=== PATIENT | female | born 1940 | race Caucasian/White ===

== ENCOUNTER 2023-06-20 10:18 | Inpatient (IN) | payer MEDICARE, OTHER ==
[~2023-06-20] VITALS: Ht 165.1 cm; Wt 69.0 kg
[2023-06-20 11:42] LABS: BASOPHILS % (AUTO) 0.4 % (0-1); EOSINOPHILS # (AUTO) 0.1 X10'3 (0-0.9); EOSINOPHILS % (AUTO) 1.1 % (0-6); HEMATOCRIT 29.9 % (35.0-45.0); HEMOGLOBIN 10.2 g/dl (12.0-16.0); LYMPHOCYTES # (AUTO) 1.3 X10'3 (1.1-4.8); LYMPHOCYTES % (AUTO) 19.9 % (21-51); MEAN CORPUSCULAR HGB CONC 34.2 g/dL (33.0-36.5); MEAN CORPUSCULAR VOLUME 87.9 FL (78-98); MEAN PLATELET VOLUME 8.5 FL (7.4-10.4); MONOCYTES # (AUTO) 0.4 X10'3 (0-0.9); MONOCYTES % (AUTO) 5.3 % (2-12); NEUTROPHILS # (AUTO) 4.9 X10'3 (1.8-7.7); NEUTROPHILS % (AUTO) 73.3 % (42-75); PLATELET COUNT 193 X10'3 (140-440); RED CELL DISTRIBUTION WIDTH 13.8 % (11.5-14.5); WHITE BLOOD COUNT 6.6 X10'3 (4.5-11.0)
[2023-06-20 11:50] LABS: ALANINE AMINOTRANSFERASE 27 U/L (12-78); ALBUMIN 3.4 G/DL (3.4-5.0); ALBUMIN/GLOBULIN RATIO 1.1 (1.1-1.5); ALKALINE PHOSPHATASE 80 IU/L (46-116); ANION GAP 7 (8-16); ASPARTATE AMINO TRANSFERASE 27 U/L (10-37); BILIRUBIN,TOTAL 0.4 MG/DL (0.1-1.0); BLOOD UREA NITROGEN 21 MG/DL (7-18); CHLORIDE 107 MMOL/L (99-107); CREATININE 0.84 MG/DL (0.40-0.90); GLUCOSE 105 MG/DL (70-104); POTASSIUM 3.6 MMOL/L (3.5-5.1); SODIUM 139 MMOL/L (135-145); TOTAL CARBON DIOXIDE 25.5 MMOL/L (24-32); TOTAL PROTEIN 6.4 G/DL (6.4-8.2); eCRCL 48 ML/MIN; eGFR 65 ML/MIN
[2023-06-20] MEDS ORDERED: pantoprazole 40mg IV 80 MG in normal saline 100ml IV soln 100 ML IV ONE (14:00)
[2023-06-20 14:39] LABS: OCCULT BLOOD STOOL POSITIVE (Neg)
[2023-06-20] MEDS ORDERED: ondansetron/PF 4mg/2ml inj IV PRN (15:00)
[2023-06-20] MEDS ORDERED: magnesium hydroxide 30ml (MOM) UD suspension PO PRN (15:00)
[2023-06-20] MEDS ORDERED: acetaminophen 325mg tablet PO PRN (15:00)
[2023-06-20 16:47] LABS: HEMATOCRIT 27.5 % (35.0-45.0); HEMOGLOBIN 9.3 g/dl (12.0-16.0); MEAN CORPUSCULAR HEMOGLOBIN 29.4 PG (27.0-31.0); MEAN CORPUSCULAR HGB CONC 33.7 g/dL (33.0-36.5); MEAN CORPUSCULAR VOLUME 87.3 FL (78-98); MEAN PLATELET VOLUME 8.2 FL (7.4-10.4); PLATELET COUNT 167 X10'3 (140-440); RED BLOOD COUNT 3.15 X10'6 (4.20-5.60); RED CELL DISTRIBUTION WIDTH 13.7 % (11.5-14.5); WHITE BLOOD COUNT 5.8 X10'3 (4.5-11.0)
[2023-06-20] MEDS: normal saline 1000ml 1,000 ML IV SCH ×3 (16:57→20:29)
[2023-06-20 17:08] LABS: APTT 25 SECONDS (22-32); PROTHROMBIN TIME 10.9 SECONDS (9.0-12.0)
--- NOTE | 2023-06-20 19:30 | NUR ---
pt placed onto in-patient bed
[2023-06-20] MEDS ORDERED: ASCO-139 PO (19:55)
[2023-06-20] MEDS ORDERED: pantoprazole 40MG/NS 100ML BAG 100 ML IV SCH (20:00)
[2023-06-21 03:03] LABS: BASOPHILS % (AUTO) 0.3 % (0-1); EOSINOPHILS # (AUTO) 0.1 X10'3 (0-0.9); EOSINOPHILS % (AUTO) 1.4 % (0-6); HEMATOCRIT 27.6 % (35.0-45.0); HEMOGLOBIN 9.4 g/dl (12.0-16.0); LYMPHOCYTES # (AUTO) 1.8 X10'3 (1.1-4.8); LYMPHOCYTES % (AUTO) 27.7 % (21-51); MEAN CORPUSCULAR HEMOGLOBIN 29.8 PG (27.0-31.0); MEAN CORPUSCULAR HGB CONC 34.2 g/dL (33.0-36.5); MEAN CORPUSCULAR VOLUME 87.1 FL (78-98); MEAN PLATELET VOLUME 8.5 FL (7.4-10.4); MONOCYTES # (AUTO) 0.4 X10'3 (0-0.9); MONOCYTES % (AUTO) 6.7 % (2-12); NEUTROPHILS # (AUTO) 4.2 X10'3 (1.8-7.7); NEUTROPHILS % (AUTO) 63.9 % (42-75); PLATELET COUNT 169 X10'3 (140-440); RED BLOOD COUNT 3.17 X10'6 (4.20-5.60); RED CELL DISTRIBUTION WIDTH 13.3 % (11.5-14.5); WHITE BLOOD COUNT 6.5 X10'3 (4.5-11.0)
[2023-06-21 03:05] VITALS: BP 145/70; PULSE 70; RESP 18; TEMP 98; O2SAT 98
[2023-06-21 03:17] LABS: MAGNESIUM 1.9 MG/DL (1.5-2.4); POTASSIUM 3.7 MMOL/L (3.5-5.1)
--- NOTE | 2023-06-21 07:17 | NUR ---
Pt requesting to leave ER this morning. Patient stating, "I just wanted to get my blood drawn and they wanted me to stay all night. I have to get home. I have things to do". MD Vergara paged regarding situation and stated if patient wants to leave at this time, it will be against medical advice as the endoscopy has not been completed. Software Development Engineer was asked to communicate this to patient and did. Patient aware of possible risks of not diagnosing/treating GI bleed. Patient stating she would still like to leave against medical advice at this time. Documented in chart -form signed.
== END 2023-06-21 07:45 | disposition left against medical advice (07) | DRG 379 ==
LOC: ER 10:19 → ED HOLD 15:08 → EDBEDREQ 06-21 03:57 → ED HOLD 06-21 07:26
PROVIDERS: ADMIT Internal Medicine; ATTEND Internal Medicine
DX: K92.2 Gastrointestinal hemorrhage, unspecified (principal); K21.9 Gastro-esophageal reflux disease without esophagitis
CPT/HCPCS: 36415; 80053; 82272; 83735; 84132; 85025; 85027; 85610; 85730; 99285; C9113; G0378; J3490; J7030

== ENCOUNTER 2023-07-17 08:52 | Emergency (ER) | payer MEDICARE, OTHER ==
[~2023-07-17] VITALS: Ht 165.1 cm; Wt 69.0 kg
[~2023-07-17 08:52] MED LIST: ASCO-139 PO
[2023-07-17] MEDS ORDERED: bisacodyl 10mg suppository rectal RC STA (11:06)
--- NOTE | 2023-07-17 11:42 | NUR ---
PT REPORTS HAVING A BOWEL MOVEMENT AND REPORTS RELIEF OF SYMPTOMS. PT STATES SHE DOES NOT WANT A SUPPOSITORY AT THIS TIME.
--- NOTE | 2023-07-17 11:57 | NUR ---
I AGREE WITH THE ASSESSMENT COMPLETED BY AGUILAR SINGH LVN.
[2023-07-17] MEDS ORDERED: lactulose 20gm/30ml cup PO ONE (12:00)
[2023-07-17 12:16] VITALS: BP 144/83; PULSE 75; RESP 16; TEMP 98.5; O2SAT 98
== END 2023-07-17 12:19 | disposition home or self-care (01) ==
LOC: ER 08:52
DX: K59.00 Constipation, unspecified (principal); H66.92 Otitis media, unspecified, left ear; Z79.899 Other long term (current) drug therapy
CPT/HCPCS: 74018; 99283